=== PATIENT | female | born 1975 | race Caucasian/White ===

== ENCOUNTER 2017-05-02 21:50 | Emergency (ER) | payer BC ==
[~2017-05-02] VITALS: Ht 162.6 cm; Wt 85.0 kg
[2017-05-02 21:51] VITALS: BP 123/83; PULSE 84; RESP 23; TEMP 98.2; O2SAT 99
[2017-05-02 22:16] VITALS: BP 139/83; PULSE 86; RESP 28; O2SAT 100
[2017-05-02] MEDS ORDERED: LORazepam 1 MG TAB PO ONE (22:45)
--- NOTE | 2017-05-02 22:46 | RADRPT ---
EXAM DATE/TIME: 05/02/2017 22:34 [place] COMPARISON: No previous studies available for comparison. INDICATIONS : Short of breath. MEDICAL HISTORY : None. SURGICAL HISTORY : None. ENCOUNTER: Initial ACUITY: 1 day PAIN SCORE: 6/10 LOCATION: Bilateral chest FINDINGS: A single view of the chest demonstrates the lungs to be symmetrically aerated without evidence of mas s, infiltrate or effusion. The cardiomediastinal contours are unremarkable. Osseous structures are intact. CONCLUSION: No evidence of acute cardiopulmonary disease. Greg Dykes MD on May 02, 2017 at 22:45 Board Certified Radiologist. This report was verified electronically.
[2017-05-02] MEDS ORDERED: LORA1TAB12 PO (23:25)
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
[2017-05-02 23:59] VITALS: BP 137/89; PULSE 84; RESP 16; O2SAT 99
== END 2017-05-03 00:05 | disposition home or self-care (01) ==
LOC: NEPE 21:50
DX: F41.9 Anxiety disorder, unspecified (principal)
CPT/HCPCS: 71010; 99283